=== PATIENT | female | born 1990 | race African-American/Black ===

== ENCOUNTER 2018-03-22 22:44 | Emergency (ER) | payer BC, OTHER ==
--- NOTE | 2018-03-22 23:43 | RAD ---
FRONTAL VIEW PELVIS: INDICATIONS: Left hip pain. FINDINGS: There is no fracture or dislocation. Phleboliths are seen overlying the pelvis. IMPRESSION: No acute osseous abnormality of the pelvis. POS: LEI
--- NOTE | 2018-03-22 23:44 | RAD ---
LEFT HIP TWO VIEWS: INDICATIONS: Left hip pain. FINDINGS: There is no evidence of fracture, dislocation, or other significant osseous abnormality. IMPRESSION: No acute osseous abnormality of the left hip. POS: JASMEET
== END 2018-03-23 00:05 | disposition home or self-care (01) ==
LOC: ERS 22:44
DX: M79.18 Myalgia, other site (principal); M25.552 Pain in left hip
CPT/HCPCS: 72170

== ENCOUNTER 2018-08-14 17:09 | Emergency (ER) | payer BC ==
[~2018-08-14 17:09] MED LIST: ISOVUE-370 76%-LOCM 1 ML ONE
[2018-08-14 17:52] LABS: BHCG - Serum Negative (NEGATIVE); Pregs Control Background? CLEAR/WHITE (CLR/WHITE); Pregs Control Bar Appear? YES (CONTROL BAR)
--- NOTE | 2018-08-14 18:05 | ULT ---
EXAM: Bilateral lower extremity venous duplex: Deep veins evaluated with color Doppler, spectral analysis, and compression. INDICATIONS: Bilateral lower extremity pain and edema. FINDINGS: Deep veins interrogated include common femoral vein, femoral vein, popliteal vein, and post erior tibial vein. These veins show normal compression and blood flow. No evidence of DVT. IMPRESSION: Negative Bilateral venous duplex exam.
--- NOTE | 2018-08-14 18:14 | CT ---
EXAM: CTA of the chest HISTORY: Shortness of breath and elevated d-dimer COMPARISON: None TECHNIQUE: Multiple contiguous axial images were obtained a CTA of the chest with contrast per pulmon donta embolism protocol. 3-D oblique MIP reformats and direct coronal reformats were performed. FINDINGS: HEART: Normal in size without focal cardiac abnormality. PULMONARY ARTERIES: Normal in caliber without filling defects to suggest pulmonary emboli. MEDIASTINUM: No hilar or mediastinal lymphadenopathy. LUNGS: No focal infiltrates or masses. PLEURAL SPACE: No pleural effusion or pneumothorax. CHEST WALL SOFT TISSUES: Unremarkable VISUALIZED OSSEOUS STRUCTURES: Unremarkable VISUALIZED SUBDIAPHRAGMATIC STRUCTURES: Unremarkable IMPRESSION: No evidence of pulmonary thromboembolism
== END 2018-08-14 18:53 | disposition home or self-care (01) ==
LOC: ERS 17:09
DX: R79.89 Other specified abnormal findings of blood chemistry (principal)
CPT/HCPCS: 36415; 71275; 80053; 80061; 83036; 84443; 84484; 84703; 85025; 85379; 93005; 93970; Q9966

== ENCOUNTER 2020-06-14 11:50 | Outpatient (CLI) | payer BC | END 2020-06-14 11:51 | disposition home or self-care (01) | LOC: BICRAD 11:50 | PROVIDERS: ATTEND Physician Assistant | DX: M79.632 Pain in left forearm (principal); S52.122D Displaced fracture of head of left radius, subsequent encounter for closed fracture with routine healing ==

== ENCOUNTER 2021-12-10 09:13 | Outpatient (CLI) | payer BC | END 2021-12-10 09:14 | disposition home or self-care (01) | LOC: BICRAD 09:13 | PROVIDERS: ATTEND Family Medicine | DX: M79.671 Pain in right foot (principal) ==